=== PATIENT | female | born 1950 | race Caucasian/White ===

== ENCOUNTER → 2024-03-12 | Outpatient (CLI) | payer MEDICARE, SELFPAY ==
[2024-03-12 11:06] LABS: Quantiferon-TB* See Sep Rpt
[2024-03-12 11:55] LABS: Amylase 56 U/L (30-118); C-Reactive Protein 1.7 mg/dL (0.0-0.9)
[2024-03-12 11:56] LABS: Ferritin 52 ng/mL (7.3-270.7); Sed Rate (ESR) 4 mm/hr (0-30)
[2024-03-12 12:32] LABS: Carcinoembryonic Antigen < 0.5 ng/mL (0.0-5.0); Hepatitis A Antibody IgM Non Reactive (Non React); Hepatitis B Core Antibody IgM Non Reactive (Non React); Hepatitis B Surface Antigen Non Reactive (Non React); Hepatitis C Antibody Non Reactive (Non React); Vitamin D 25 Hydroxy Total 38.2 ng/mL (7.3-40.2)
[2024-03-12 18:47] LABS: RA Screen Positive (Negative)
[2024-03-12 19:05] LABS: Rheumatoid Factor Titer 1:32
[2024-03-20 06:33] LABS: HIV Ag/Ab, 4th Gen NON-REACTIVE
== END | disposition home or self-care (01) ==
LOC: COPL 10:37
PROVIDERS: PCP Nurse Practitioner Family; Referring Provider Internal Medicine Gastroenterology; Visit Provider Internal Medicine Gastroenterology
DX: K58.1 Irritable bowel syndrome with constipation (principal)
CPT/HCPCS: 36415; 80074; 82150; 82306; 82378; 82728; 85652; 86140; 86430; 86431; 86480; 87389

== ENCOUNTER → 2024-03-12 | Outpatient (CLI) | payer MEDICARE, SELFPAY ==
[2024-03-12 15:47] LABS: Collection Type, Urine Clean Catch
[2024-03-12 17:24] LABS: Bacteria,Urine Rare; Bilirubin,Urine Negative (Negative); Blood,Urine Negative (Negative); Clarity,Urine Clear (Clear/Hazy); Color,Urine Yellow (Lt Yel-Yel); Culture Indicated,Urine Not Indicated; Glucose, Urine Negative (Negative); Ketones,Urine Negative (Negative); Leukocyte Esterase,Urine Negative (Negative); Nitrite,Urine Negative (Negative); PH,Urine 5.5 (5.0-7.0); Protein,Urine Trace (Neg - Trace); RBC,Urine 1 /hpf (0-3); Specific Gravity,Urine 1.028 (1.001-1.035); Squamous Epithelial Cell,Urine 3 /hpf (0-5); Urobilinogen,Urine Negative mg/dL (0.0-1.0); WBC,Urine 1 /hpf (0-5)
== END | disposition home or self-care (01) ==
LOC: SLDO 15:27
PROVIDERS: PCP Nurse Practitioner Family; Referring Provider Nurse Practitioner Family; Visit Provider Nurse Practitioner Family
DX: N30.00 Acute cystitis without hematuria (principal)
CPT/HCPCS: 81001

== ENCOUNTER → 2024-03-23 | Outpatient (CLI) | payer MEDICARE, SELFPAY ==
[2024-04-02 07:24] LABS: Helicobacter pylori Ag, Stool* NOT DETECTED (NOT DETECTED)
== END | disposition home or self-care (01) ==
LOC: SLDO 13:13
PROVIDERS: Referring Provider Internal Medicine Gastroenterology; Visit Provider Internal Medicine Gastroenterology
DX: K58.1 Irritable bowel syndrome with constipation (principal)
CPT/HCPCS: 87015; 87045; 87046; 87077; 87177; 87209; 87338; 87899

== ENCOUNTER → 2024-04-11 | Outpatient (CLI) | payer MEDICARE, SELFPAY ==
--- NOTE | 2024-04-11 | XR_ITS ---
Examination: Thoracic spine 3 views TECHNIQUE: AP lateral coned lateral upper dorsal spine 3 views Exam date and time: April 11, 2024 1243 hours INDICATIONS: Upper back pain beginning 2 years ago. FINDINGS: Midthoracic dextroscoliosis 10 degrees Thoracolumbar levoscoliosis 13 degrees Moderate osteopenia Moderate to advanced diffuse thoracic degenerative disc disease No acute fracture Also noted significant cervical degenerative disc disease C4-C5, C5-C6, C6-C7 IMPRESSION: Moderate to advanced diffuse thoracic degenerative disc disease
== END | disposition home or self-care (01) ==
PROVIDERS: PCP Nurse Practitioner Family; Referring Provider Nurse Practitioner Family; Visit Provider Nurse Practitioner Family
DX: M51.34 Other intervertebral disc degeneration, thoracic region (principal)
CPT/HCPCS: 72070

== ENCOUNTER → 2024-04-13 | Outpatient (CLI) | payer MEDICARE, SELFPAY ==
--- NOTE | 2024-04-13 14:20 | XR_ITS ---
Examination: Bone densitometry Date and time of exam:April 13, 2024 1022 hours INDICATIONS: Menopause age 56 vitamin D 5 years levothyroxine 10 years, personal history osteopenia Technique: Lumbar spine and hip total bone mineralization values of an calculated. Peak reference and age match control results have been displayed. Findings: Lumbar spine total bone mineralization is0.868 gm/cm2. This is 1.6 standard deviations below peak reference. This is 0.6 standard deviations above age-matched controls. Hip total bone mineralization is 0.742 gm/cm2 This is 1.6 standard deviations below peak reference. This is 0.0 standard deviations at age-matched controls Impression: There is osteopenia based on lumbar spine measurements. There is osteopenia based on hip measurements Lumbar mineralization is increase 7.1% compared with July 17, 2019 Hip mineralization is increased 1.6% compared with July 17, 2019
== END | disposition home or self-care (01) ==
LOC: CDIM 09:57
PROVIDERS: PCP Nurse Practitioner Family; Referring Provider Nurse Practitioner Family; Visit Provider Nurse Practitioner Family
DX: M85.89 Other specified disorders of bone density and structure, multiple sites (principal)
CPT/HCPCS: 77080

== ENCOUNTER → 2024-04-19 | Outpatient (CLI) | payer MEDICARE, SELFPAY ==
[2024-04-26 06:26] LABS: Calprotectin, Stool* 46 mcg/g
== END | disposition home or self-care (01) ==
LOC: SLDO 10:11
PROVIDERS: Referring Provider Internal Medicine Gastroenterology; Visit Provider Internal Medicine Gastroenterology
DX: K44.9 Diaphragmatic hernia without obstruction or gangrene (principal)
CPT/HCPCS: 83993

== ENCOUNTER → 2024-06-26 | Outpatient (CLI) | payer MEDICARE, SELFPAY ==
--- NOTE | 2024-06-26 14:30 | XR_ITS ---
Examination: Breast ultrasound, unilateral, right complete Date and time of exam: June 26, 2024 1403 hours INDICATIONS: Mammogram December 26, 2023 10 mm focal asymmetry upper outer right breast, family history, sister breast cancer Technique: Real-time perez scale ultrasonographic imaging performed right breast including all 4 quadrants as well as nipple retroareolar and axillary region. Findings: Right axillary lymph node, probably benign, 3.2 x 2.1 x 2.6 cm Smaller right axillary lymph nodes No breast mass IMPRESSION: BI-RADS Category 3: Probably benign findings Recommend 1 additional 6 month right breast sonogram follow-up to document stability of axillary lymph node as described above
--- NOTE | 2024-06-26 15:00 | XR_ITS ---
Examination: Diagnostic digital mammography, unilateral, right Computer aided detection 3-D breast Tomosynthesis, unilateral Date and time of exam: June 26, 2024 at 1419 hours INDICATIONS: Mammogram December 26, 2023 16 mm focal asymmetry upper outer right breast Technique: Nonmagnified MLO, CC views of the right breast have been obtained, reconstructed from 3-D Tomosynthesis images. R2 computer aided detection program utilized for evaluation of suspicious masses and/or abnormal calcifications. 3-D Tomosynthesis images obtained. Findings: The breast is heterogeneously dense, which may obscure small masses Stable focal asymmetry upper outer right breast No interval suspicious masses Impression: BI-RADS category 2: Benign findings Recommend yearly follow-up mammography Please see the right breast sonogram report today recommending six-month right breast axillary sonogram follow-up
== END | disposition home or self-care (01) ==
PROVIDERS: PCP Family Medicine; Referring Provider Surgery; Visit Provider Surgery
DX: R92.321 Mammographic fibroglandular density, right breast (principal); Z80.3 Family history of malignant neoplasm of breast
CPT/HCPCS: 76641; 77061; 77065; G0279

== ENCOUNTER 2024-09-07 13:29 | Emergency (ER) | payer MEDICARE, SELFPAY ==
[2024-09-07 14:05] VITALS: BP 134/63; PULSE 70; RESP 18; TEMP 36.8; O2SAT 97
[2024-09-07 14:06] VITALS: BMI 24.9
--- NOTE | 2024-09-07 14:10 | XR_ITS ---
Examination: CT abdomen and pelvis without contrast. Coronal 3-D reconstructions. Sagittal 2-D reconstructions. Date and time of exam:September 07, 2024 1553 hours INDICATIONS: Bloody stools lower abdominal pain today COMPARISON: August 23, 2023 CTDI: vol (mGy): 8.78 DLP: (mGycm): 486 Technique: Axial images of the abdomen have been obtained, 3 mm slice thickness Intravenous contrast material has not been administered. Low dose protocols were performed. One or more of the following dose reduction techniques were used; automated exposure control, adjustment of the mA and/or KV according to patient size, use of iterative reconstruction technique. Findings: No focal liver or splenic lesion No gallstones No pancreatic or adrenal mass 2 mm left renal calculus, no hydronephrosis or ureteral calculi Aorta normal size 25 mm fat-containing umbilical hernia No pericecal inflammatory change No pelvic mass No bladder mass or bladder calculi Advanced degenerative disc disease L5-S1 IMPRESSION: 2 mm nonobstructing left renal calculus, no hydronephrosis or ureteral calculi No bowel obstruction No diverticulitis No nonspecific colitis pattern
--- NOTE | 2024-09-07 14:11 | PD.EDRME ---
Rapid Medical Screening Exam E Arrival date/time: 09/07/24 13:29 74-year-old female with a history of diverticulitis presents to the emergency room with a chief complaint of right lower quadrant and left lower quadrant abdominal pain and tenderness x 2 days. Patient was sent over by her primary care provider. I have greeted and performed a focused initial assessment of this patient. A comprehensive ED assessment and evaluation of the patient, analysis of all test results, and completion of the medical decision making process will be conducted by additional ED providers. Chief Complaint: Abdominal Pain Vital signs: Vital Signs Temperature 98.2 F 09/07/24 14:05 Pulse Rate 70 09/07/24 14:05 Respiratory Rate 18 09/07/24 14:05 Blood Pressure 134/63 H 09/07/24 14:05 Pulse Oximetry (%) 97 09/07/24 14:05 Oxygen Delivery Method Room Air 09/07/24 14:05 Vital signs reviewed by provider: Yes
[2024-09-07 14:31] LABS: Collection Type, Urine Clean Catch
[2024-09-07 14:47] LABS: Amorphous Crystals,Urine Present (Absent); Bilirubin,Urine Negative (Negative); Blood,Urine Negative (Negative); Clarity,Urine Clear (Clear/Hazy); Color,Urine Yellow (Lt Yel-Yel); Glucose, Urine Negative (Negative); Ketones,Urine Negative (Negative); Leukocyte Esterase,Urine Positive (Negative); Nitrite,Urine Negative (Negative); Protein,Urine Trace (Neg - Trace); RBC,Urine 3 /hpf (0-3); Specific Gravity,Urine 1.021 (1.001-1.035); Squamous Epithelial Cell,Urine 4 /hpf (0-5); Urobilinogen,Urine Negative mg/dL (0.0-1.0); WBC,Urine 10 /hpf (0-5)
[2024-09-07 15:00] LABS: Basophils % (Auto) 1 % (0-2.5); Eosinophils # (Auto) 0.2 Thou/mm3 (0.0-0.5); Eosinophils % (Auto) 3 % (0-10); Hematocrit 39.2 % (36.0-46.0); Hemoglobin 13.6 g/dL (12.0-16.0); Immature Granulocytes % (Auto) 0 % (0-0); Lymphocytes # (Auto) 2.1 Thou/mm3 (1.0-4.8); Lymphocytes % (Auto) 37 % (10-50); Mean Corpuscular HGB Conc 34.7 g/dl (31.0-37.0); Mean Corpuscular Hemoglobin 31.2 pg (25.0-35.0); Mean Corpuscular Volume 90 fL (80-100); Monocytes # (Auto) 0.3 Thou/mm3 (0.0-0.8); Monocytes % (Auto) 6 % (0-12); Neutrophils # (Auto) 2.9 Thou/mm3 (1.8-7.7); Neutrophils % (Auto) 53 % (37-80); Nucleated Red Blood Cell % 0 /100 WBC (0); Platelet Count 254 Thou/mm3 (140-440); RDW Standard Deviation 39.8 fL (36.4-46.3); Red Blood Count 4.36 Miln/mm3 (4.00-5.20); White Blood Count 5.5 Thou/mm3 (3.6-11.0)
[2024-09-07 15:15] LABS: Alanine Aminotransferase 15 U/L (10-49); Albumin, Serum 4.5 gm/dL (3.4-4.8); Alkaline Phosphatase 109 U/L (46-116); Anion Gap 9 (7-16); Aspartate Amino Transferase 17 U/L (0-34); BUN/Creatinine Ratio 12 Ratio (12-20); Bilirubin,Total 0.8 mg/dL (0.3-1.2); Blood Urea Nitrogen 12 mg/dL (9-23); Carbon Dioxide 30.2 mMol/L (20.0-31.0); Chloride 104 mMol/L (98-107); Estimated Creatinine Clearance 48.7 mL/min (>60); Globulin 2.3 gm/dL (2.3-3.5); Glucose 96 mg/dL (74-106); Lipase 29 U/L (12-53); Osmolality,Calculated 284 (275-295); Potassium 4.3 mMol/L (3.4-5.1); Sodium 143 mMol/L (136-145); Total Protein 6.8 gm/dL (5.7-8.2); eGFR 59 See Note
[2024-09-07 17:38] VITALS: BP 134/74; PULSE 71; RESP 18; TEMP 36.6; O2SAT 97
--- NOTE | 2024-09-07 18:26 | EDNOTE_ITS ---
<Statement entered by Blessing Amato MD - 09/09/24 04:31> As co-signing physician, I was present and available for consult prn. I concur with the plan and care as documented by the midlevel provider. ED Abdominal Pain RME/HPI General Chief Complaint: Abdominal Pain Stated complaint: ABD PAIN, N/V, CONSTIPATION, MUCUS IN STOOL Time seen by provider: 09/07/24 18:10 Arrival date/time: 09/07/24 13:29 RME / HPI RME / HPI narrative: 74-year-old female with a history of diverticulitis presents to the emergency room with a chief complaint of right lower quadrant and left lower quadrant abdominal pain and tenderness x 2 days. Patient was sent over by her primary care provider. Patient denies any fever denies any other complaints no medications taken prior to arrival. Related Data Home Medications ?Medication ?Instructions ?Recorded ?Confirmed levothyroxine 25 mcg tablet 25 mcg PO QDAY 02/14/18 (Synthroid) cholecalciferol (vitamin D3) 25 25 mcg PO QWEEK 03/27/24 mcg (1,000 unit) tablet pantoprazole 40 mg tablet,delayed 40 mg PO DAILY PRN A lis Reflux 03/26/24 03/27/24 release Allergies Allergy/AdvReac Type Severity Reaction Status Date / Time cephalexin Allergy Severe RASH, N/V Verified 03/27/24 07:51 ciprofloxacin Allergy Severe Hives Verified 03/27/24 07:51 ibuprofen (From Motrin) Allergy Severe Hives Verified 03/27/24 07:51 interferon beta-1a Allergy Severe HALLUCINATI Verified 03/27/24 07:51 ONS Penicillins Allergy Severe RASH Verified 03/27/24 07:51 codeine AdvReac Severe NAUSEA Verified 03/27/24 07:51 Review of Systems Review of Systems Narrative Review of Systems: Review of system reviewed and within normal limits except mentioned in HPI ED Exam Narrative Physical exam: VITAL SIGNS: Reviewed. GENERAL APPEARANCE: Alert and interactive, follows commands, no acute distress, HEAD AND FACE: Non-traumatic. ENT: PERRL, pink conjunctivitis, eyelid no trauma, Mucous membrane moist. NECK: Supple, nontender, no nuchal rigidity. CHEST: No tenderness, no crepitus, no paradoxical movement, no retractions. LUNGS: Clear, well ventilated, symmetric, no rales, no wheezing, no ronchi, no stridor, good breath sounds bilaterally. HEART: Regular rate, regular rhythm, no murmur, no gallops. ABDOMEN: Soft, positive bowel sounds, nondistended, no guarding, nontender, no rebound, no masses, RECTAL: Deferred. GENITAL: Deferred. NEUROLOGICAL: Gross motor function intact sensory function intact, Appropriate for age. MUSCULOSKELETAL: low back nontender, full range of motion. EXTREMITIES: Nontender, full range of motion. SKIN: Color pink, dry, no rash, no lacerations, no abrasions, no contusions. LYMPHATICS: Deferred. Course Quality Measures none Orders Category Date Time Status CT abdomen pelvis wo con Stat Exams 09/07/24 14:10 Completed CBC Stat Lab 09/07/24 14:37 Completed CMP [Comprehensive Metabolic Panel] Stat Lab 09/07/24 14:37 Completed Lipase Stat Lab 09/07/24 14:37 Completed UA [Urinalysis] Stat Lab 09/07/24 14:22 Completed Urine Culture Stat Lab 09/07/24 14:22 Received Vital Signs Vital signs: Vital Signs Temperature 98.2 F 09/07/24 14:05 Pulse Rate 70 09/07/24 14:05 Respiratory Rate 18 09/07/24 14:05 Blood Pressure 134/63 H 09/07/24 14:05 Pulse Oximetry (%) 97 09/07/24 14:05 Oxygen Delivery Method Room Air 09/07/24 14:05 Abdominal Pain MDM MDM Narrative MDM Narrative:: 74-year-old female with a history of diverticulitis presents to the emergency room with a chief complaint of right lower quadrant and left lower quadrant abdominal pain and tenderness x 2 days. Patient was sent over by her primary care provider. Patient denies any fever denies any other complaints no medications taken prior to arrival. Patient's workup all came back unremarkable including normal CT scan of the abdomen pelvis patient was given a copy of her CT scan. Patient appears nontoxic and hemodynamically stable. Patient discharged home and instructed to follow-up with primary care provider in 24 to 48 hours. Her urinalysis positive for WBC count of 10 leukocyte esterase positive however patient is not having the symptoms. Instructed to return to the emergency department immediately if worsening of symptoms Patient data External records reviewed:: None Clinical information provided by:: patient Social determinants that could affect healthcare access:: none Patient has the following chronic illnesses:: History of diverticulitis How is presenting disease/condition affected by chronic disease/condition?: exacerbated by Evaluation data The following diagnostics were reviewed and interpreted by me:: lab results and radiology exam(s) Lab and/or radiology exams considered but not ordered:: None Interpretation Summary: See results MDM Medications / Prescriptions Medications or Prescriptions considered but not ordered:: None Medication administrations:: None Consultations Consultation(s) initiated? (list below): No Diagnosis Differential diagnosis abdominal pain: abdominal pain, diverticulitis and gastroenteritis Most likely diagnosis given after review of the tests above:: Abdominal pain Admission Indicated Admission indicated?: not indicated Admission Request Was there a request for admission?: No Disposition Plan Disposition Plan: Discharge Discharge Attestation Discharge Attestation: The patient was given an opportunity to ask questions and understood the discharge instructions. Discharge instructions specifically effects, indications for sooner follow up or return to the emergency department, and the expected course of current diagnosis. Patient condition: Stable Discharge Plan Plan Patient Disposition: Admit Acute Care w/in Hospital Discharge Disposition comment: stable Prescriptions/Referrals Prescriptions/Med Rec: No Action levothyroxine [Synthroid] 25 mcg Tablet 25 mcg PO QDAY pantoprazole 40 mg tablet,delayed release (DR/EC) 40 mg PO DAILY PRN (Reason: Acid Reflux) Patient Comments: TAKE 1 TABLET BY MOUTH EVERY DAY FOR 90 DAYS cholecalciferol (vitamin D3) 25 mcg (1,000 unit) Tablet 25 mcg PO QWEEK Referrals: Miri Ziegler [employer]PER[employer] DIRECTOR [Primary Care Provider] - In 1 week Problem List Clinical Impression: Abdominal pain Patient/Caregiver Discharge Instructions Discharge Activity: activity as tolerated Education Materials: Abdominal Pain Additional Instructions: Thank you for the opportunity for serving you today. You are stable for discharged . You are advised to: Follow-up with your PCP in 1 to 2 days and as per referral to GI specialist Return to ED for worsening of symptoms Print Language: Khmer Stand Alone Forms: Neda Award Info., Patient Portal Info Letter PA/HUGO Supervising Physician BAN/HUGO Supervising Physician: MD Lm
== END 2024-09-07 18:40 | disposition admitted as inpatient to this hospital (09) ==
PROVIDERS: Nurse Practitioner Family; Emergency Provider Emergency Medicine; PCP Nurse Practitioner Family
DX: R10.32 Left lower quadrant pain (principal)
CPT/HCPCS: 36415; 74176; 80053; 81001; 83690; 85025; 87086; 99284

== ENCOUNTER → 2024-09-17 | Outpatient (CLI) | payer MEDICARE, SELFPAY ==
[2024-09-17 15:09] LABS: Urea Breath Test Negative (Negative)
== END | disposition home or self-care (01) ==
LOC: COPL 10:36
PROVIDERS: PCP Family Medicine; Referring Provider Nurse Practitioner Family; Visit Provider Nurse Practitioner Family
DX: R10.9 Unspecified abdominal pain (principal)
CPT/HCPCS: 83013; 83014

== ENCOUNTER → 2024-09-18 | Outpatient (CLI) | payer MEDICARE, SELFPAY ==
[2024-09-19 07:36] LABS: Clostridium Difficile PCR Negative (Negative)
== END | disposition home or self-care (01) ==
LOC: SLDO 13:13
PROVIDERS: Referring Provider Nurse Practitioner Family; Visit Provider Nurse Practitioner Family
DX: R10.9 Unspecified abdominal pain (principal)
CPT/HCPCS: 87015; 87045; 87046; 87177; 87209; 87493; 87899

== ENCOUNTER → 2024-10-02 | Outpatient (CLI) | payer MEDICARE, SELFPAY ==
--- NOTE | 2024-10-02 13:55 | XR_ITS ---
Examination: Abdomen AP single view Technique: AP portable supine abdomen, single view Exam date and time: October 02, 2024 1402 hours INDICATIONS: Abdominal pain beginning one year ago. FINDINGS: Curvilinear opacity 9 mm projecting to the right of L2, which may be postsurgical, clinical correlation advised Moderate stool throughout the colon No obstruction IMPRESSION: 9 mm curvilinear opacity projecting to the right of L2, clinical correlation advised This is not visualized on October 23, 2023 exam
== END | disposition home or self-care (01) ==
LOC: CDIM 13:38
PROVIDERS: PCP Nurse Practitioner Family; Referring Provider Specialist; Visit Provider Specialist
DX: R11.0 Nausea (principal); R10.32 Left lower quadrant pain
CPT/HCPCS: 74018

== ENCOUNTER → 2024-12-17 | Outpatient (CLI) | payer MEDICARE, SELFPAY ==
--- NOTE | 2024-12-17 09:00 | XR_ITS ---
Examination: Breast ultrasound, unilateral, right Date and time of exam: December 17, 2024 0910 hours INDICATIONS: Right breast sonogram June 26, 2024 probably benign 3.2 cm right axillary lymph node, family history breast cancer, sister, right breast biopsy several months ago negative for carcinoma Technique: Real-time perez scale ultrasonographic imaging performed right breast including all 4 quadrants as well as nipple retroareolar and axillary region. Findings: 3.2 x 2.1 x 2.9 cm axillary lymph node without architectural distortion No suspicious breast masses IMPRESSION: BI-RADS Category 2: Benign findings
--- NOTE | 2024-12-17 09:30 | XR_ITS ---
Examination: Diagnostic digital mammography, bilateral Computer aided detection 3-D breast Tomosynthesis, bilateral Date and time of exam: December 17, 2024 0922 hours Compared to mammograms dating to November 02, 2021 INDICATIONS: Patient states right breast pain several months, history right breast biopsy 2024 Technique: Nonmagnified MLO, CC views of the breasts to been obtained, reconstructed from 3-D Tomosynthesis images. R2 computer aided detection program utilized for evaluation of suspicious masses and/or abnormal calcifications. 3-D Tomosynthesis images obtained. Findings: The breasts are heterogeneously dense, which may obscure small masses Benign calcifications. No interval suspicious masses Impression: BI-RADS Category 2: Benign findings Recommend yearly follow-up mammography.
== END | disposition home or self-care (01) ==
LOC: CDIM 08:41
PROVIDERS: PCP Nurse Practitioner Family; Referring Provider Surgery; Visit Provider Surgery
DX: R92.323 Mammographic fibroglandular density, bilateral breasts (principal); R92.1 Mammographic calcification found on diagnostic imaging of breast
CPT/HCPCS: 76641; 77062; 77066; G0279

== ENCOUNTER → 2025-04-10 | Outpatient (CLI) | payer MEDICARE, SELFPAY ==
[2025-04-10 08:11] LABS: Collection Type, Urine Clean Catch
[2025-04-10 08:27] LABS: Basophils # (Auto) 0.0 Thou/mm3 (0.0-0.2); Basophils % (Auto) 1 % (0-2.5); Eosinophils # (Auto) 0.3 Thou/mm3 (0.0-0.5); Eosinophils % (Auto) 5 % (0-10); Hematocrit 43.2 % (36.0-46.0); Hemoglobin 14.1 g/dL (12.0-16.0); Immature Granulocytes Auto 0.02 Thou/mm3 (0.00-0.00); Lymphocytes # (Auto) 1.9 Thou/mm3 (1.0-4.8); Lymphocytes % (Auto) 35 % (10-50); Mean Corpuscular HGB Conc 32.6 g/dl (31.0-37.0); Mean Corpuscular Hemoglobin 30.5 pg (25.0-35.0); Mean Corpuscular Volume 93 fL (80-100); Monocytes # (Auto) 0.5 Thou/mm3 (0.0-0.8); Monocytes % (Auto) 9 % (0-12); Neutrophils # (Auto) 2.7 Thou/mm3 (1.8-7.7); Neutrophils % (Auto) 50 % (37-80); Nucleated Red Blood Cell # 0.00 Thou/mm3 (0.00-0.00); Nucleated Red Blood Cell % 0 /100 WBC (0); Platelet Count 312 Thou/mm3 (140-440); RDW Standard Deviation 42.7 fL (36.4-46.3); Red Blood Count 4.63 Miln/mm3 (4.00-5.20); White Blood Count 5.4 Thou/mm3 (3.6-11.0)
[2025-04-10 08:31] LABS: Amorphous Crystals,Urine Present (Absent); Bilirubin,Urine Negative (Negative); Blood,Urine Negative (Negative); Color,Urine Lt-Yellow (Lt Yel-Yel); Culture Indicated,Urine Not Indicated; Glucose, Urine Negative (Negative); Ketones,Urine Negative (Negative); Leukocyte Esterase,Urine Positive (Negative); Nitrite,Urine Negative (Negative); PH,Urine 7.0 (5.0-7.0); Protein,Urine Negative (Neg - Trace); RBC,Urine 2 /hpf (0-3); Specific Gravity,Urine 1.020 (1.001-1.035); Squamous Epithelial Cell,Urine 2 /hpf (0-5); Urobilinogen,Urine Negative mg/dL (0.0-1.0); WBC,Urine 4 /hpf (0-5)
[2025-04-10 08:44] LABS: Clarity,Urine Hazy (Clear/Hazy)
[2025-04-10 08:53] LABS: Glucose Estimated Average 105 mg/dL (80-131); Hemoglobin A1C 5.3 % Hgb (4.8-6.0)
[2025-04-10 08:57] LABS: Iron 166 mcg/dL (50-170)
[2025-04-10 09:01] LABS: Vitamin B12 408 pg/mL (211-911)
[2025-04-10 09:05] LABS: Alanine Aminotransferase 47 U/L (10-49); Albumin, Serum 4.7 gm/dL (3.4-4.8); Albumin/Globulin Ratio 2.2 (1.2-2.2); Alkaline Phosphatase 98 U/L (46-116); Anion Gap 8 (7-16); Aspartate Amino Transferase 28 U/L (0-34); BUN/Creatinine Ratio 18 Ratio (12-20); Bilirubin,Total 0.6 mg/dL (0.3-1.2); Blood Urea Nitrogen 16 mg/dL (9-23); Calcium 9.4 mg/dL (8.3-10.6); Calcium (Corrected) 9.4 mg/dL (8.5-10.1); Carbon Dioxide 31.1 mMol/L (20.0-31.0); Cardiac Risk Estimate 2.8 RATIO (3.7-5.6); Chloride 105 mMol/L (98-107); Cholesterol 204 mg/dL (132-200); Creatinine (Component) 0.9 mg/dL (0.6-1.3); Free T4 (Free Thyroxine) 1.35 ng/dL (0.89-1.76); Globulin 2.1 gm/dL (2.3-3.5); Glucose 98 mg/dL (74-106); HDL Cholesterol 73 mg/dL (40-60); LDL Cholesterol,Calculated 117 mg/dL (0-130); Osmolality,Calculated 288 (275-295); Potassium 4.6 mMol/L (3.4-5.1); Sodium 144 mMol/L (136-145); Thyroid Stimulating Hormone 1.44 uIU/mL (0.55-4.78); Total Protein 6.8 gm/dL (5.7-8.2); Triglycerides 72 mg/dL (30-150); eGFR > 60 See Note
== END | disposition home or self-care (01) ==
LOC: COPL 07:07
PROVIDERS: PCP Family Medicine; Referring Provider Nurse Practitioner Family; Visit Provider Nurse Practitioner Family
DX: Z00.00 Encounter for general adult medical examination without abnormal findings (principal); I10 Essential (primary) hypertension; R73.03 Prediabetes; E03.9 Hypothyroidism, unspecified; E53.8 Deficiency of other specified B group vitamins
CPT/HCPCS: 36415; 80053; 80061; 81001; 82607; 83036; 83540; 84439; 84443; 85025